=== PATIENT | female | born 2000 ===

== ENCOUNTER → 2018-09-24 | Outpatient (CLI) | payer OTHER ==
[~2018-09-24] MED LIST: CLOB15OI16 TP; FLUC150T40 PO; NORE1TAB81 PO; NORG1TAB74 PO
== END ==
LOC: LAB 10:04
PROVIDERS: ATTEND Obstetrics & Gynecology
DX: N89.8 Other specified noninflammatory disorders of vagina (principal)
CPT/HCPCS: 87210

== ENCOUNTER → 2018-10-30 | Outpatient (CLI) | payer OTHER | LOC: LAB 10:01 | PROVIDERS: ATTEND Obstetrics & Gynecology | DX: L29.2 Pruritus vulvae (principal) | CPT/HCPCS: 87210 ==